=== PATIENT | female | born 1995 | race Caucasian/White ===

== ENCOUNTER 2024-05-13 02:09 | Outpatient (CLI) | payer OTHER ==
[2024-05-13 03:42] LABS: Basophils # (A) 0.1 k/uL (0-0.2); Basophils % (A) 0 %; Eosinophils # (A) 0.1 k/uL (0-0.7); Eosinophils % (A) 1 %; HCT 32.5 % (34.0-46.0); HGB 10.8 gm/dL (11.4-16.0); Lymphocytes # (A) 1.6 k/uL (1.0-4.8); Lymphocytes % (A) 15 %; MCH 30.2 pg (25.0-35.0); MCHC 33.4 g/dL (31.0-37.0); MCV 90.7 fL (80.0-100.0); Mean Platelet Volume 7.1; Monocytes # (A) 0.6 k/uL (0-1.0); Monocytes % (A) 6 %; Neutrophils # (A) 8.4 k/uL (1.3-7.7); Neutrophils % (A) 77 %; Platelet Count 308 k/uL (150-450); RBC 3.58 m/uL (3.80-5.40); RDW 14.2 % (11.5-15.5); WBC 10.9 k/uL (3.8-10.6)
[2024-05-13 03:51] LABS: ALT 24 U/L (4-34); AST 45 U/L (14-36); African American GFR (CKD) >90 (>60 ml/min/1.73 sqM); Blood Urea Nitrogen 12 mg/dL (7-17); Glucose 83 mg/dL (74-99); LDH 277 U/L (120-246); Non-African American GFR(CKD) >90 (>60 ml/min/1.73 sqM); Uric Acid 3.3 mg/dL (3.7-7.4)
[2024-05-13 04:00] LABS: Appearance,Urine Clear (Clear); Bilirubin,Urine Negative (Negative); Blood,Urine Large (Negative); Color,Urine Yellow; Glucose,Urine (UA) Negative (Negative); Ketones,Urine 3+ (Negative); Leukocyte Esterase,Urine Negative (Negative); Mucus,Urine Rare /hpf; Nitrite,Urine Negative (Negative); PH, Urine 6.5 (5.0-8.0); Protein,Urine 1+ (Negative); RBC,Urine 87 /hpf (0-5); Squamous Epithelial Cell,Urine 5 /hpf (0-4); WBC,Urine 2 /hpf (0-5)
[2024-05-13 04:03] LABS: Amphetamine Screen,Urine Detected (NotDetected); Barbiturate Screen,Urine Not Detected (NotDetected); Benzodiazepines Screen,Urine Not Detected (NotDetected); Cocaine Screen,Urine Not Detected (NotDetected); Methadone Screen, Urine Not Detected (NotDetected); Opiate Screen,Urine Detected (NotDetected); Oxycodone Screen, Urine Detected (NotDetected); Phencyclidine Screen,Urine Not Detected (NotDetected); Tricyclic Antidepressant,Urine Not Detected (NotDetected); Urn Cannabinoid Scrn Not Detected (NotDetected)
--- NOTE | 2024-05-13 05:03 | US ---
EXAMINATION TYPE: US OB >= 14 wk fetus DATE OF EXAM: 05/13/2024 COMPARISON: None CLINICAL INDICATION: Female, 28 years old with history of No care/bleeding; Anatomy scan don e at other facility. Vag bleeding per patient TECHNIQUE: Transabdominal (TA) GESTATIONAL AGE / DATING Physician Established: (36 weeks/2 days) EDC: 06/08/2024 Dates by First Scan: (36 weeks/2 days) EDC: 06/08/2024 Dates by Current Scan: (32 weeks/2 days) EDC: 07/05/2024 Beta HCG (if available): Not available at this time SURVEY IUP: Single PLACENTA: Anterior There are a few small anechoic areas seen, largest measures 1.3cm. Tiny lakes s uspected. PREVIA: No Previa MICHAEL: 11.6 cm Normal CERVICAL LENGTH (transabdominal: norm > 3.0cm): 3.2 cm BIOMETRY PRESENTATION: Vertex LIE: Longitudinal BPD: 8.4 cm 33 weeks / 5 days HC: 29.9 cm 33 weeks / 1 days AC:28.14 cm 32 weeks / 2 days FL: 5.8 cm 30 weeks / 4 days ESTIMATED WEIGHT IN GRAMS: 1865 grams ESTIMATED WEIGHT IN LBS/OZ: 4 lbs. 1 oz. WEIGHT PERCENTAGE BASED ON ESTABLISHED DATES: <2% HC/AC: 1.06 Normal FL/AC: 21 Normal HEART RATE: 127 bpm RHYTHM: Normal Single live intrauterine gestation. Normal cephalad presentation. No placenta previa. Estimated amnio tic fluid index within normal limits. Estimated weight below normal range. IMPRESSION: As above.
[2024-05-13] MEDS: MAGNESIUM SULFATE-WATER PMX 4 GM in WATER FOR INJECTION 1 100ML.BAG IVPB ONE (05:55)
[2024-05-13] MEDS: LACTATED RINGERS 1,000 ML IV SCH (05:55)
[2024-05-13] MEDS: BETAMET ACET-BETAMETH SOD PHOS 6 MG/ML MDV IM SCH (05:57)
[2024-05-13] MEDS: MAGNESIUM SULFATE-WATER PMX 20 GM in WATER FOR INJECTION 1 500ML.BAG IV SCH (06:19)
--- NOTE | 2024-05-13 06:50 | P.HPOB ---
History of Present Illness H&P Date: 05/13/24 Chief Complaint: vaginal bleeding 28 year old presents at 36.2 by 20 week US at a clinic in [place] with vaginal bleeding. She has had a few gushes of bleeding in the night and came in to triage. Her cervix is 3/80/-2 and she is not jodie. heart tones category 1. Not actively bleeding but has some scant blood on the pad. HEr BPs were quite elevated on admission and patient admits to anxiety. US was done and showed vertex, 1865grams, MICHAEL=11cm and no signs of abruption or previa. This US puts her dates at 32.3 or <2%ile for baby. Labs showed LDH and liver enzyme elevation. She was also + for some opiates and methamphetamines and amphetamines on UDS. I diagnosed her with pre-eclampsia and will transfer her to a tertiary care center, [facility] in [place], where they can take care of a baby. Review of Systems All systems: negative Constitutional: Denies chills, Denies fever Eyes: denies blurred vision, denies pain Ears, nose, mouth and throat: Denies headache, Denies sore throat Cardiovascular: Denies chest pain, Denies shortness of breath Respiratory: Denies cough Gastrointestinal: Denies abdominal pain, Denies diarrhea, Denies nausea, Denies vomiting Genitourinary: Denies dysuria, Denies hematuria Musculoskeletal: Denies myalgias Integumentary: Denies pruritus, Denies rash Neurological: Denies numbness, Denies weakness Psychiatric: Denies anxiety, Denies depression Endocrine: Denies fatigue, Denies weight change Past Medical History Additional Past Medical History / Comment(s): OB history: 2 previous vaginal deliveries History of Any Multi-Drug Resistant Organisms: None Reported Past Surgical History: No Surgical Hx Reported - Sexual Orientation/Gender Identity What was your sex assigned at ?: Female Past Psychological History: Anxiety Smoking Status: Never smoker Medications and Allergies Home Medications Medication Instructions Recorded Confirmed Type Vit No.180/Iron/Folic 1 tab PO DAILY 05/13/24 05/13/24 History [ Plus Vitamin-Mineral] Allergies Allergy/AdvReac Type Severity Reaction Status Date / Time No Known Allergies Allergy Verified 05/13/24 02:18 Exam Osteopathic Statement: *. No significant issues noted on an osteopathic structural exam other than those noted in the History and Physical/Consult. Intake and Output 05/12/24 05/12/24 05/13/24 14:59 22:59 06:59 Other: Weight 56.245 kg Heart: Regular rate and rhythm Lungs: Clear to auscultation bilaterally Abdomen: Soft, nontender Extremities: Negative Homans sign Results Result Diagrams: 05/13/24 03:25 05/13/24 03:25 Abnormal Lab Results - Last 24 Hours (Table) 05/13/24 05/13/24 05/13/24 Range/Units 03:15 03:15 03:15 WBC (3.8-10.6) k/uL RBC (3.80-5.40) m/uL Hgb (11.4-16.0) gm/dL Hct (34.0-46.0) % Neutrophils # (1.3-7.7) k/uL Creatinine (0.52-1.04) mg/dL Uric Acid (3.7-7.4) mg/dL AST (14-36) U/L Lactate Dehydrogenase (120-246) U/L Urine Protein 1+ H (Negative) Urine Ketones 3+ H (Negative) Urine Blood Large H (Negative) Urine RBC 87 H (0-5) /hpf Ur Squamous Epith Cells 5 H (0-4) /hpf Urine Mucus Rare H (None) /hpf U Random Total Protein 34 H (<12) mg/dL Urine Opiates Screen Detected H (NotDetected) Ur Oxycodone Screen Detected H (NotDetected) Ur Amphetamines Screen Detected H (NotDetected) U Methamphetamines Scrn Detected H (NotDetected) 05/13/24 05/13/24 Range/Units 03:25 03:25 WBC 10.9 H (3.8-10.6) k/uL RBC 3.58 L (3.80-5.40) m/uL Hgb 10.8 L (11.4-16.0) gm/dL Hct 32.5 L (34.0-46.0) % Neutrophils # 8.4 H (1.3-7.7) k/uL Creatinine 0.47 L (0.52-1.04) mg/dL Uric Acid 3.3 L (3.7-7.4) mg/dL AST 45 H (14-36) U/L Lactate Dehydrogenase 277 H (120-246) U/L Urine Protein (Negative) Urine Ketones (Negative) Urine Blood (Negative) Urine RBC (0-5) /hpf Ur Squamous Epith Cells (0-4) /hpf Urine Mucus (None) /hpf U Random Total Protein (<12) mg/dL Urine Opiates Screen (NotDetected) Ur Oxycodone Screen (NotDetected) Ur Amphetamines Screen (NotDetected) U Methamphetamines Scrn (NotDetected) Assessment and Plan (1) Antepartum bleeding, third trimester Current Visit: Yes Status: Acute Code(s): O46.93 - ANTEPARTUM HEMORRHAGE, UNSPECIFIED, THIRD TRIMESTER SNOMED Code(s): 230973792 (2) Pre-eclampsia Current Visit: Yes Status: Acute Code(s): O14.90 - UNSPECIFIED PRE- ECLAMPSIA, UNSPECIFIED TRIMESTER SNOMED Code(s): 674759678 Plan: 1. Mag sullfate 4gram bolus and 2 grams an hour 2. [place] 3. transfer to [place] -accepting physician was Myron
[2024-05-13 08:41] VITALS: BP 163/95; PULSE 101; RESP 18; TEMP 98
[2024-05-13 10:52] LABS: Hepatitis B Surface Antigen Nonreactive (Nonreactive)
[2024-05-13 12:59] LABS: HIV 2 AB Non-Reactive (Non-Reactive); HIV AB P24 Non-Reactive (Non-Reactive); HIV P24 AG Non-Reactive (Non-Reactive)
[2024-05-17 14:24] LABS: C. trachomatis,PCR Negative (Negative)
[2024-05-17 14:26] LABS: N. gonorrhoeae,PCR Negative (Negative)
== END 2024-05-13 08:40 ==
LOC: FBPOP 02:09
PROVIDERS: ATTEND Obstetrics & Gynecology
CPT/HCPCS: 36415; 59025; 76805; 80306; 81001; 82565; 82570; 82947; 83615; 84156; 84450; 84460; 84520; 84550; 85025; 86762; 86780; 86850; 86900; 86901; 87340; 87390; 87491; 87591; 96365; 96366; 96372; 99215